=== PATIENT | female | born 1965 | race African-American/Black ===

== ENCOUNTER → 2017-11-10 | Emergency (ER) | payer OTHER ==
[2017-11-10 17:36] VITALS: BP 153/103; PULSE 85; TEMP 98; BMI 32.9
--- NOTE | 2017-11-10 18:22 | PDOC ---
History of Present Illness - General Chief Complaint: Pain Stated Complaint: lump inside left side of stomach Time Seen by Provider: 11/10/17 17:50 History Source: Patient - History of Present Illness Timing/Duration: other (today) Associated Symptoms: denies: fever/chills, nausea/vomiting Past History - Past Medical History Allergies/Adverse Reactions: Allergies Allergy/AdvReac Type Severity Reaction Status Date / Time Penicillins Allergy Verified 11/10/17 17:36 COPD: No HTN: Yes - Suicide/Smoking/Psychosocial Hx Smoking History: Never smoked Have you smoked in the past 12 months: No Information on smoking cessation initiated: No Hx Alcohol Use: No Drug/Substance Use Hx: No Substance Use Type: None Review of Systems - Review of Systems Constitutional: No: Chills, Fever ABD/GI: No: Abdominal Distended, Constipated, Diarrhea, Nausea, Rectal Bleeding , Vomiting, Abdominal cramping *Physical Exam - Vital Signs Last Vital Signs Temp Pulse Resp BP Pulse Ox 98.0 F 85 16 153/103 100 11/10/17 17:34 11/10/17 17:34 11/10/17 17:34 11/10/17 17:34 11/10/17 17:34 - Physical Exam General Appearance: Yes: Appropriately Dressed. No: Apparent Distress HEENT: positive: Normal Voice Neck: positive: Supple Respiratory/Chest: negative: Respiratory Distress Gastrointestinal/Abdominal: positive: Soft, Other (~1-2cm soft, NT, mobile mass just under skin of LUQ). negative: Tender Medical Decision Making - Medical Decision Making 11/10/17 18:15 52-year-old female, s/p cristhian remotely, here to be evaluated for abdominal lump. Patient states while laying in bed today and palpating her abdomen, felt a "lump" in her L upper abd that she has not noticed before. No pain to site and denies any other sxs at this time. States she has a pmd appt in 3 days. Pt well hayde and stable w/ ~1-2cm NT, mobile, soft lump palpated just beneath skin in LUQ, possibility lipoma. No need for intervention in ER. Dc w/ further pmd eval this week *DC/Admit/Observation/Transfer Diagnosis at time of Disposition: Abdominal swelling - Discharge Dispostion Disposition: HOME Condition at time of disposition: Good - Referrals - Patient Instructions Additional Instructions: The cause of your abdominal lump is unclear at this time, but you will need further evaluation by your primary care physician - Post Discharge Activity
== END | disposition home or self-care (01) ==
LOC: JERFT 17:23
DX: R19.02 Left upper quadrant abdominal swelling, mass and lump (principal); I10 Essential (primary) hypertension; Z90.49 Acquired absence of other specified parts of digestive tract
CPT/HCPCS: 99281-25

== ENCOUNTER 2024-01-13 13:37 | Emergency (ER) | payer OTHER ==
[2024-01-13 14:02] VITALS: PULSE 93; RESP 17; TEMP 98.1; BMI 23.3
[2024-01-13 14:57] VITALS: BP 190/116
[2024-01-13] MEDS ORDERED: ERYTHROMYCIN 0.5% OPHTHALMIC OINTMENT 3.5 GM TUBE ONE (15:27)
[2024-01-13] MEDS ORDERED: HYDROCHLOROTHIAZIDE 25 MG TABLET (FP) ONE (15:28)
[2024-01-13] MEDS ORDERED: LOSARTAN POTASSIUM 50 MG TABLET ONE (15:28)
[2024-01-13] MEDS: LOSARTAN POTASSIUM 50 MG TABLET PO ONE (15:34)
[2024-01-13] MEDS: ERYTHROMYCIN 0.5% OPHTHALMIC OINTMENT 3.5 GM TUBE OS ONE (15:34)
[2024-01-13] MEDS: HYDROCHLOROTHIAZIDE 25 MG TABLET (FP) PO ONE (15:34)
== END 2024-01-13 17:45 | disposition home or self-care (01) ==
LOC: JER 13:37
DX: H10.32 Unspecified acute conjunctivitis, left eye (principal); I10 Essential (primary) hypertension; H57.89 Other specified disorders of eye and adnexa
CPT/HCPCS: 93005; 93010; 99283-25